=== PATIENT | female | born 1980 | race Caucasian/White ===

== ENCOUNTER 2023-03-10 09:53 | Emergency (ER) | payer OTHER, SELFPAY ==
--- NOTE | ~2023-03-10 | XR_ITS ---
EXAMINATION: XR SHOULDER, LEFT CLINICAL INFORMATION: Left shoulder pain/injury. COMPARISON: None available. TECHNIQUE: AP external rotation, Grashey, scapular Y, and axillary views of the left shoulder. FINDINGS: No acute fracture or dislocation. No joint space narrowing or marginal osteophytes. No osseous erosion. No abnormal soft tissue calcification. Subclavicular postsurgical change. Surgical clips within the left axilla. XR/XR shoulder LT min 2V IMPRESSION: No acute osseous abnormality.
[2023-03-10 11:00] VITALS: BP 125/82; PULSE 73; RESP 17; TEMP 36.6; O2SAT 99; BMI 22.2
[2023-03-10] MEDS: Ibuprofen 600 MG TABLET PO (11:19)
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
--- NOTE | 2023-03-10 14:05 | PC.NURSE ---
PT WAS AMBULATORY INTO ED AND IS SITTING WITH FAMILY. SHE WAS SEEN BY PROVIDER AND IS AWAITING RESULTS FOR DISPOSITION
== END 2023-03-10 15:32 | disposition home or self-care (01) ==
PROVIDERS: Emergency Provider Emergency Medicine
DX: S13.4XXA Sprain of ligaments of cervical spine, initial encounter (principal); S49.92XA Unspecified injury of left shoulder and upper arm, initial encounter; V43.52XA Car driver injured in collision with other type car in traffic accident, initial encounter; Y93.9 Activity, unspecified; Y92.410 Unspecified street and highway as the place of occurrence of the external cause; Y99.9 Unspecified external cause status
CPT/HCPCS: 73030; 99283